=== PATIENT | male | born 1945 | race Caucasian/White ===

== ENCOUNTER 2017-05-23 01:50 | Emergency (ER) | payer MEDICARE ==
[~2017-05-23] VITALS: Ht 182.9 cm; Wt 83.9 kg
[~2017-05-23 01:50] MED LIST: ATEN25TA2 PO; ATIVAN; MOTRIN; OMEP40EC1 PO; PAX20 PO; TRAZ-286 PO
[2017-05-23 01:55] VITALS: BP 142/83
--- NOTE | 2017-05-23 02:04 | NUR ---
PT TAKEN TO BED 8
--- NOTE | 2017-05-23 02:13 | NUR ---
71Y/M PT. PRESENTS TO ED WITH C/O GENERALIZED WEAKNESS X 2 HRS. PT. STATES HEADACHE WITH GENERALIZED WEAKNESS, ALSO STATES CHECK BP AT HOME; HYPOTENSIVE 89/48. HX. HTN, ANXIETY, ATIVAN 2 MG TAKEN AT 2100. AAO X4, AMBULATORY WITH STEADY GAIT, CGS 15. RESPIRATIONS ROOM AIR, EVEN AND UNLABORED. C/O PAIN 5/10, VSS. ER MD MADE AWARE OF PT. STATUS.
--- NOTE | 2017-05-23 02:34 | NUR ---
Patient appears to be resting comfortably in bed. Vital Signs within normal limits. Respirations even and unlabored.
[2017-05-23 02:50] VITALS: BP 99/70
--- NOTE | 2017-05-23 02:50 | NUR ---
Patient discharged with v/s stable. Written and verbal after care instructions given and explained. Patient alert, oriented and verbalized understanding of instructions. Ambulatory with steady gait. All questions addressed prior to discharge. ID band removed. Patient advised to follow up with PMD IN 2-3 DAYS. Rx of LIDIAIEN given. Patient educated on indication of medication including possible reaction and side effects. Opportunity to ask questions provided and answered.
== END 2017-05-23 02:50 | disposition home or self-care (01) ==
LOC: MED 01:50
DX: G47.00 Insomnia, unspecified (principal); I10 Essential (primary) hypertension; K21.9 Gastro-esophageal reflux disease without esophagitis; Z88.2 Allergy status to sulfonamides; Z88.5 Allergy status to narcotic agent; Z79.899 Other long term (current) drug therapy
CPT/HCPCS: 99283

== ENCOUNTER 2017-09-03 19:16 | Emergency (ER) | payer MEDICARE ==
[~2017-09-03] VITALS: Ht 167.6 cm; Wt 90.8 kg
[2017-09-03 19:22] VITALS: BP 145/85
--- NOTE | 2017-09-03 19:47 | NUR ---
PATIENT AMBULATED TO ER OF2.
--- NOTE | 2017-09-03 19:50 | NUR ---
PATIENT PRESENTS TO ED WITH C/O COUGH/PHLEM AND BUCKLEY PT DENIES N/V/D; SKIN IS PINK/WARM/DRY; AAOX4 WITH EVEN AND STEADY GAIT; LUNGS CLEAR BL; HR EVEN AND REGULAR; PT DENIES ANY FEVER, CP, SOB AT THIS TIME; PATIENT STATES PAIN OF 7/10 AT THIS TIME; VSS; PATIENT POSITIONED FOR COMFORT; HOB ELEVATED; BEDRAILS UP X2; BED DOWN. ER MD MADE AWARE OF PT STATUS.
[2017-09-03 20:21] VITALS: BP 145/85
--- NOTE | 2017-09-03 20:21 | NUR ---
Patient discharged with v/s stable. Written and verbal after care instructions given and explained. Patient alert, oriented and verbalized understanding of instructions. Ambulatory with steady gait. All questions addressed prior to discharge. ID band removed. Patient advised to follow up with PMD. Rx of CLARITIN given. Patient educated on indication of medication including possible reaction and side effects. Opportunity to ask questions provided and answered.
== END 2017-09-03 20:21 | disposition home or self-care (01) ==
LOC: MED 19:16
DX: B34.9 Viral infection, unspecified (principal); J20.9 Acute bronchitis, unspecified; I10 Essential (primary) hypertension; K21.9 Gastro-esophageal reflux disease without esophagitis; F41.9 Anxiety disorder, unspecified; Z88.5 Allergy status to narcotic agent; Z88.2 Allergy status to sulfonamides; Z79.899 Other long term (current) drug therapy
CPT/HCPCS: 99282

== ENCOUNTER 2019-12-21 21:37 | Emergency (ER) | payer MEDICARE ==
[~2019-12-21] VITALS: Ht 182.9 cm; Wt 94.3 kg
[~2019-12-21 21:37] MED LIST changes: -OMEP40EC1 PO; +OMEP40EC24 PO; -TRAZ-286 PO; +TRAZ-343 PO
--- NOTE | 2019-12-21 21:37 | NUR ---
PT VINOD TELLEZ. TAKEN TO BED 11
--- NOTE | 2019-12-21 21:37 | NUR ---
Dr. Celestin examining patient.
[2019-12-21 21:42] VITALS: BP 199/100
--- NOTE | 2019-12-21 21:49 | NUR ---
SPOKE TO FAMILY OF PT. PER PT, STATED IT WAS OK TO GIVE INFORMATION ABOUT PT STATUS. PT DESIGNATED DAUGHTER NED THE PRIMARY CONTACT. [phone] SECONDARY NUMBER TONE MCCOY,
[2019-12-21] MEDS ORDERED: hydrALAZINE 20 MG/ML VIAL IVP ONE (21:55)
[2019-12-21] MEDS ORDERED: ENALAPRILAT 2.5 MG/2 ML VIAL IVP ONE (21:55)
--- NOTE | 2019-12-21 21:57 | NUR ---
DR NAIR AWARE OF PT BLOOD PRESSURE OF 197/108
--- NOTE | 2019-12-21 22:18 | NUR ---
74 Y/O MALE BIB [facility] C/O HIGH BLOOD PRESSURE. PT HAS HX OF HTN AND HAS NOT BEEN COMPLIANT WITH HTN MEDS (ATENOLOL 50MG). DENIES ANY CHEST PAIN. VSS. RESP EVEN AND UNLABORED. LUNG SOUNDS CLEAR IN ALL DE SOUZA. BOWEL SOUNDS NORMOACTIVE. AAOX4. CAP REFILL <3. PT IS AFEBRILE. DENIES COUGH/ N/V/D. PMH: HTN, ANXIETY
[2019-12-21 22:29] LABS: APPEARANCE,URINE CLEAR (CLEAR); BILIRUBIN,URINE NEGATIVE (NEGATIVE); BLOOD, URINE NEGATIVE (NEGATIVE); COLOR,URINE YELLOW (YELLOW); LEUKOCYTE ESTERASE ,URINE NEGATIVE (NEGATIVE); NITRITE, URINE NEGATIVE (NEGATIVE); PH,URINE 6.5 (5.0-9.0); UGLUCOSE NEGATIVE (NEGATIVE)
[2019-12-21 22:30] LABS: BASOPHILS # (AUTO) 0.1 K/uL (0.00-0.22); BASOPHILS % (AUTO) 0.9 % (0.0-2.0); EOSINOPHILS # (AUTO) 0.2 K/uL (0-0.4); HEMATOCRIT 46.2 % (36-52); HEMOGLOBIN 15.6 g/dL (12.0-18.0); LYMPHOCYTES # (AUTO) 2.5 K/uL (2.0-11.5); LYMPHOCYTES % (AUTO) 46.3 % (20.5-51.1); MEAN CORPUSCULAR HEMOGLOBIN 30 pg (27-31); MEAN CORPUSCULAR HGB CONC 34 g/dL (33-37); MEAN CORPUSCULAR VOLUME 90.2 fL (80-94); MONOCYTES # (AUTO) 0.6 K/uL (0.8-1.0); MONOCYTES % (AUTO) 11.6 % (1.7-9.3); NEUTROPHILS # (AUTO) 2.1 K/uL (1.8-7.7); NEUTROPHILS % (AUTO) 38.2 % (42.2-75.2); PLATELET COUNT (AUTO) 225 K/uL (140-450); RED BLOOD CELL COUNT(AUTO) 5.12 MIL/uL (4.20-6.10); RED CELL DISTRIBUTION WIDTH 13.6 % (11.6-13.7); WHITE BLOOD COUNT (AUTO) 5.4 K/uL (4.8-10.8)
[2019-12-21 22:45] LABS: ALBUMIN 4.2 g/dL (3.4-5.0); ANION GAP 11.8 (8-16); ASPARTATE AMINOTRANSFERASE 29 U/L (15-37); CARBON DIOXIDE 29.1 mmol/L (21-32); CHLORIDE 102 mmol/L (98-107); CREATININE 1.1 mg/dL (0.6-1.3); GLUCOSE 120 mg/dL (74-106); POTASSIUM 3.9 mmol/L (3.5-5.1); SODIUM SERUM 139 mmol/L (136-145); TOTAL BILIRUBIN 0.5 mg/dL (0.0-1.0); UREA NITROGEN, BLOOD 14 mg/dL (7-18)
[2019-12-22 01:04] VITALS: BP 119/72
--- NOTE | 2019-12-22 01:05 | NUR ---
Patient discharged BY DR. NAIR with v/s stable. Written and verbal after care instructions given and explained. Patient verbalized understanding. Ambulatory with steady gait. All questions addressed BY DR. NAIR prior to discharge. Advised to follow up with PMD.
== END 2019-12-22 01:05 | disposition home or self-care (01) ==
LOC: MED 21:37
DX: I10 Essential (primary) hypertension (principal); K21.9 Gastro-esophageal reflux disease without esophagitis; Z91.19 Patient's noncompliance with other medical treatment and regimen; Z79.899 Other long term (current) drug therapy; Z88.2 Allergy status to sulfonamides; Z88.5 Allergy status to narcotic agent
CPT/HCPCS: 36415; 80053; 81003; 84484; 85025; 93005; 96374; 96375; 99284; J0360; J3490

== ENCOUNTER 2019-12-26 19:00 | Emergency (ER) | payer MEDICARE ==
[~2019-12-26] VITALS: Ht 182.9 cm; Wt 94.3 kg
[2019-12-26 19:00] VITALS: BP 188/98
--- NOTE | 2019-12-26 19:02 | NUR ---
Pt with negative screening for covid-19. Pt triaged. Pt wearing mask
--- NOTE | 2019-12-26 19:02 | NUR ---
BIBA TAKEN TO BED 4
--- NOTE | 2019-12-26 19:10 | NUR ---
PT 74 Y/O MALE BIB SELF FOR C/O HTN X 1 DAY. PT STATED SBP WAS "IN THE 200'S" AT HOME. CURRENT BP:143/92. PT DENIES CHEST PAIN. PT DENIES BUCKLEY OR DIZZYNESS AT THIS TIME. 0/10 PAIN. PT STATES HE RECENTLY STARTED NEW BP MEDICATION- BENAZAPRIL 10MG. PT DENIES COUGH, AFEBRILE. RESPIRATIONS ARE EVEN AND UNLABORED. SKIN IS WARM AND DRY TO TOUCH. PT CURRENTLY ON MONITOR. MEDHX: HTN, INSOMNIA, ANXIETY, GERD. ALLERGIES: MORPHINE, SULFA
--- NOTE | 2019-12-26 19:12 | NUR ---
UA COLLECTED VIA URINAL. IV PLACED PRIOR TO ARRIVAL FROM EMS. IV IN L AC 20G. IV SITE IS PATENT. NO REDNESS OR SWELLING NOTED. NO C/O PAIN AT IV SITE.
--- NOTE | 2019-12-26 21:35 | NUR ---
PT RESTING IN POSITION OF COMFORT, BED LOW AND LOCKED, SIDERAILS UP, DIMMED THE LIGHTS AND PROVIDED PT A BLANKET.
--- NOTE | 2019-12-26 21:42 | NUR ---
LAB AT BEDSIDE
--- NOTE | 2019-12-26 21:52 | NUR ---
jessie emt at bedside performing ekg.
[2019-12-26 21:58] LABS: BASOPHILS % (AUTO) 0.7 % (0.0-2.0); EOSINOPHILS # (AUTO) 0.1 K/uL (0-0.4); EOSINOPHILS % (AUTO) 2.9 % (0.0-4.0); HEMATOCRIT 43.9 % (36-52); HEMOGLOBIN 14.8 g/dL (12.0-18.0); LYMPHOCYTES # (AUTO) 1.7 K/uL (2.0-11.5); LYMPHOCYTES % (AUTO) 37.9 % (20.5-51.1); MEAN CORPUSCULAR HEMOGLOBIN 31 pg (27-31); MEAN CORPUSCULAR HGB CONC 34 g/dL (33-37); MEAN CORPUSCULAR VOLUME 91.1 fL (80-94); MONOCYTES # (AUTO) 0.6 K/uL (0.8-1.0); MONOCYTES % (AUTO) 12.4 % (1.7-9.3); NEUTROPHILS # (AUTO) 2.1 K/uL (1.8-7.7); NEUTROPHILS % (AUTO) 46.1 % (42.2-75.2); PLATELET COUNT (AUTO) 190 K/uL (140-450); RED BLOOD CELL COUNT(AUTO) 4.82 MIL/uL (4.20-6.10); RED CELL DISTRIBUTION WIDTH 13.8 % (11.6-13.7); WHITE BLOOD COUNT (AUTO) 4.6 K/uL (4.8-10.8)
[2019-12-26 22:20] LABS: ALBUMIN 3.7 g/dL (3.4-5.0); ANION GAP 10.3 (8-16); ASPARTATE AMINOTRANSFERASE 26 U/L (15-37); CHLORIDE 105 mmol/L (98-107); CREATININE 0.9 mg/dL (0.6-1.3); GLUCOSE 117 mg/dL (74-106); POTASSIUM 4.3 mmol/L (3.5-5.1); SODIUM SERUM 141 mmol/L (136-145); TOTAL BILIRUBIN 0.4 mg/dL (0.0-1.0); UREA NITROGEN, BLOOD 15 mg/dL (7-18)
[2019-12-26 22:58] VITALS: BP 167/84
--- NOTE | 2019-12-26 22:58 | NUR ---
Patient discharged with v/s stable. Written and verbal after care instructions given and explained. Patient verbalized understanding. Ambulatory with steady gait. All questions addressed prior to discharge. Advised to follow up with PMD.
--- NOTE | 2019-12-26 22:58 | NUR ---
elijah ritchie aware of pt bp prior to d/c.
== END 2019-12-26 22:58 | disposition home or self-care (01) ==
LOC: MED 19:00
DX: I10 Essential (primary) hypertension (principal); F41.0 Panic disorder [episodic paroxysmal anxiety]; K21.9 Gastro-esophageal reflux disease without esophagitis; G47.00 Insomnia, unspecified; Z79.899 Other long term (current) drug therapy; Z88.5 Allergy status to narcotic agent; Z88.2 Allergy status to sulfonamides
CPT/HCPCS: 36415; 80053; 84484; 85025; 93005; 99284

== ENCOUNTER 2020-01-03 03:26 | Emergency (ER) | payer MEDICARE ==
[~2020-01-03] VITALS: Ht 182.9 cm; Wt 86.2 kg
--- NOTE | 2020-01-03 03:26 | NUR ---
PT VINOD BLS TO ER BED 07
[2020-01-03 03:29] VITALS: BP 202/104
[2020-01-03] MEDS ORDERED: hydrALAZINE 20 MG/ML VIAL IVP ONE (03:35)
--- NOTE | 2020-01-03 03:40 | NUR ---
74 YEAR OLD MALE BIBA COMPLAINS OF ANXIETY AND DIZZINESS X 1 HOUR. PATIENT STATES THAT WHEN HE WAS HOME HE TOOK HIS BLOOD PRESSURE AND IT READ "HIGH." PER EMS PATIETN BP WAS 230/110. PATIENT AOX4, BREATHING EVEN AND UNLABORED, SKIN WARM AND DRY. BED IN LOWEST POSITION, LOCKED, BED RAIL UPX1. PATIENT DENIES HEADACHE, CHEST PAIN, AND SHORTNESS OF BREATHE. PATIENT PLACED ON MONITOR, ERMD MADE AWARE. PMH - ANXIETY, HTN ALLERGIES - MORPHINE, SULFA
[2020-01-03] MEDS ORDERED: ONDANSETRON 4 MG/2 ML VIAL IVP ONE (04:10)
[2020-01-03] MEDS ORDERED: LORazepam 2 MG/ML VIAL IVP ONE ×2 (04:10→04:25)
[2020-01-03 04:12] LABS: BASOPHILS % (AUTO) 0.5 % (0.0-2.0); EOSINOPHILS # (AUTO) 0.2 K/uL (0-0.4); EOSINOPHILS % (AUTO) 4.2 % (0.0-4.0); LYMPHOCYTES # (AUTO) 1.3 K/uL (2.0-11.5); LYMPHOCYTES % (AUTO) 35.2 % (20.5-51.1); MEAN CORPUSCULAR HEMOGLOBIN 30 pg (27-31); MEAN CORPUSCULAR HGB CONC 34 g/dL (33-37); MEAN CORPUSCULAR VOLUME 89.5 fL (80-94); MONOCYTES # (AUTO) 0.4 K/uL (0.8-1.0); MONOCYTES % (AUTO) 10.8 % (1.7-9.3); NEUTROPHILS # (AUTO) 1.8 K/uL (1.8-7.7); NEUTROPHILS % (AUTO) 49.3 % (42.2-75.2); PLATELET COUNT (AUTO) 189 K/uL (140-450); RED BLOOD CELL COUNT(AUTO) 4.92 MIL/uL (4.20-6.10); RED CELL DISTRIBUTION WIDTH 13.9 % (11.6-13.7); WHITE BLOOD COUNT (AUTO) 3.6 K/uL (4.8-10.8)
[2020-01-03 04:44] LABS: ALBUMIN 3.7 g/dL (3.4-5.0); ANION GAP 13.6 (8-16); ASPARTATE AMINOTRANSFERASE 27 U/L (15-37); CHLORIDE 104 mmol/L (98-107); GLUCOSE 124 mg/dL (74-106); POTASSIUM 3.6 mmol/L (3.5-5.1); SODIUM SERUM 141 mmol/L (136-145); TOTAL BILIRUBIN 0.5 mg/dL (0.0-1.0)
[2020-01-03 05:04] LABS: UREA NITROGEN, BLOOD 13 mg/dL (7-18)
[2020-01-03 06:19] VITALS: BP 104/57
--- NOTE | 2020-01-03 06:40 | NUR ---
PATIENT STATES HE STILL HAS DIZZINESS, UNABLE TO WALK. ERMD MADE AWARE
[2020-01-03] MEDS ORDERED: MECLIZINE 25 MG TAB PO ONE (06:45)
--- NOTE | 2020-01-03 07:15 | NUR ---
RECEIVED REPORT FROM NICKOLAS HUITRON.
--- NOTE | 2020-01-03 07:15 | NUR ---
REPORT GIVEN TO LJ OLMOS, TRANSFER OF CARE AT THIS TIME
--- NOTE | 2020-01-03 07:18 | NUR ---
WHEELED PT TO RESTROOM TO DO NUMBER 2.
--- NOTE | 2020-01-03 07:25 | NUR ---
pt back from restroom .
--- NOTE | 2020-01-03 07:30 | NUR ---
dr zurita at bedside reevaluating pt and was advise to take homes meds and ff up with his primary doctor . vs stable , ambulatory with steady gait.
== END 2020-01-03 07:48 | disposition home or self-care (01) ==
LOC: MED 03:26
DX: I10 Essential (primary) hypertension (principal); R42 Dizziness and giddiness; F41.9 Anxiety disorder, unspecified; K21.9 Gastro-esophageal reflux disease without esophagitis; Z88.1 Allergy status to other antibiotic agents; Z88.5 Allergy status to narcotic agent; Z79.899 Other long term (current) drug therapy
CPT/HCPCS: 36415; 71045; 80053; 83690; 84484; 85025; 93005; 96374; 96375; 99285; J0360; J2060; J2405; J8597; Q0092; 99283

== ENCOUNTER 2020-01-15 22:59 | Emergency (ER) | payer MEDICARE ==
[~2020-01-15] VITALS: Ht 182.9 cm; Wt 81.6 kg
[2020-01-15 23:04] VITALS: BP 215/118
[2020-01-15] MEDS ORDERED: cloNIDine 0.1 MG TAB PO ONE (23:15)
[2020-01-15] MEDS ORDERED: hydrALAZINE 25 MG TAB PO SCH (23:15)
[2020-01-15 23:26] LABS: BASOPHILS # (AUTO) 0.1 K/uL (0.00-0.22); EOSINOPHILS # (AUTO) 0.1 K/uL (0-0.4); HEMATOCRIT 46.8 % (36-52); HEMOGLOBIN 15.6 g/dL (12.0-18.0); LYMPHOCYTES # (AUTO) 2.5 K/uL (2.0-11.5); LYMPHOCYTES % (AUTO) 44.3 % (20.5-51.1); MEAN CORPUSCULAR HEMOGLOBIN 30 pg (27-31); MEAN CORPUSCULAR HGB CONC 33 g/dL (33-37); MEAN CORPUSCULAR VOLUME 90.7 fL (80-94); MONOCYTES # (AUTO) 0.6 K/uL (0.8-1.0); MONOCYTES % (AUTO) 10.1 % (1.7-9.3); NEUTROPHILS # (AUTO) 2.4 K/uL (1.8-7.7); NEUTROPHILS % (AUTO) 42.6 % (42.2-75.2); PLATELET COUNT (AUTO) 226 K/uL (140-450); RED BLOOD CELL COUNT(AUTO) 5.16 MIL/uL (4.20-6.10); RED CELL DISTRIBUTION WIDTH 14.4 % (11.6-13.7); WHITE BLOOD COUNT (AUTO) 5.7 K/uL (4.8-10.8)
--- NOTE | 2020-01-15 23:35 | NUR ---
Jazmín escudero in ED - 01/16/20 at 0008 by [facility] BP OF 215/118. DR CHAVIRA MADE AWARE.
--- NOTE | 2020-01-15 23:35 | NUR ---
BP OF 215/118. DR CHAVIRA MADE AWARE.
--- NOTE | 2020-01-15 23:40 | NUR ---
74M BIBA C/O HIGH BP AT 215/118. PT HAS NOT BEEN RESPONDING TO HTN MEDICATION PER PT. PT STATES IS COMPLIANT WITH HTN MEDICATION BUT THE DOSE IS NOT MAINTAINING BP WNL. PT HAS HEADACHE WITH PAIN 01/24. PT REPORTS TAKING EXTRA BP MEDICATIONS X AM. HEART RATE AT 50BPM, DOCTOR CHAVIRA NOTIFIED. MEDICAL HX: HTN/ANXIETY/GI REFLUX ALLERGY: SULFA
--- NOTE | 2020-01-15 23:42 | NUR ---
PT MEDICATED WITH CLONIDINE AND HYDRALAZINE FOR HIGH BP. TOLERATED PROCEDURE WELL.
[2020-01-15 23:43] LABS: ALBUMIN 4.2 g/dL (3.4-5.0); ANION GAP 10.9 (8-16); ASPARTATE AMINOTRANSFERASE 22 U/L (15-37); CARBON DIOXIDE 30.9 mmol/L (21-32); CHLORIDE 102 mmol/L (98-107); GLUCOSE 118 mg/dL (74-106); POTASSIUM 3.8 mmol/L (3.5-5.1); SODIUM SERUM 140 mmol/L (136-145); TOTAL BILIRUBIN 0.5 mg/dL (0.0-1.0); UREA NITROGEN, BLOOD 12 mg/dL (7-18)
--- NOTE | 2020-01-16 00:15 | NUR ---
BP NOW AT 184/69. DR. CHAVIRA NOTIFIED.
--- NOTE | 2020-01-16 00:16 | NUR ---
DR CHAVIRA AT BEDSIDE EVALUATING PT.
--- NOTE | 2020-01-16 00:16 | NUR ---
Jazmín escudreo in [facility] - 01/16/20 at 0016 by TARAN AT BEDSIDE TALKING WITH PT
[2020-01-16] MEDS ORDERED: cloNIDine 0.1 MG TAB PO ONE (00:25)
--- NOTE | 2020-01-16 00:32 | NUR ---
BP 144/95. DR CHAVIRA MADE AWARE. CLONIDINE MEDICATION ON HOLD.
[2020-01-16] MEDS ORDERED: hydrALAZINE 25 MG TAB PO SCH (00:50)
--- NOTE | 2020-01-16 01:04 | NUR ---
BP 135/74, HR [address] CHAVIRA MADE AWARE[address] HOLD APRESOLINE PER MD ORDER.
[2020-01-16 01:32] VITALS: BP 127/76
--- NOTE | 2020-01-16 01:32 | NUR ---
Patient discharged with v/s stable. Written and verbal after care instructions given and explained. Patient alert, oriented and verbalized understanding of instructions. Ambulatory with steady gait. All questions addressed prior to discharge. ID band removed. Patient advised to follow up with PMD. Rx of HYDRALAZINE given. Patient educated on indication of medication including possible reaction and side effects. Opportunity to ask questions provided and answered.
== END 2020-01-16 01:31 | disposition home or self-care (01) ==
LOC: MED 22:59
DX: I10 Essential (primary) hypertension (principal); R42 Dizziness and giddiness; K21.9 Gastro-esophageal reflux disease without esophagitis; Z79.899 Other long term (current) drug therapy; Z88.5 Allergy status to narcotic agent; Z88.2 Allergy status to sulfonamides
CPT/HCPCS: 36415; 80053; 85025; 99283

== ENCOUNTER 2020-01-16 16:43 | Emergency (ER) | payer MEDICARE ==
[~2020-01-16] VITALS: Ht 182.9 cm; Wt 81.6 kg
[2020-01-16 17:25] VITALS: BP 197/105
--- NOTE | 2020-01-16 17:37 | NUR ---
WAIT AT LOBBY
--- NOTE | 2020-01-16 18:01 | NUR ---
PT AMB TO BED 11.
--- NOTE | 2020-01-16 18:13 | NUR ---
74 y/m presents to ed C/O HEADACHE , NECK PAIN X TODAY. PT REPORTS 6/10 PAIN. PT WAS SEEN HERE YESTERDAY FOR HTN AND WAS PRESCRIBED HYDROCHLOROTHIAZIDE IN ADDITION TO HIS OTHER HTN RX. ,PT REPORTS HE LAST TOOK HYDROCHLORATHIAZIDE AT 1600. PT REPORTS HIGHEST BP WAS 186/87. PT DENIES NAUSEA, SOB, OR CHEST PAIN . PT A &O X 4. PERRL. RR EVEN AND UNLABORED. PT REPORTS HE FELT A LITTLE ANXIOUS EARLIER BUT HAS SUBSIDED. LUNGS CLEAR, ABD SOFT. BS ACTIVE X 4. MED HX: HTN, ANXIETY, GERD MED : HYDRALAZINE , BENAZEPRIL, ATENOLOL
[2020-01-16] MEDS ORDERED: cloNIDine 0.1 MG TAB PO ONE (18:15)
--- NOTE | 2020-01-16 18:32 | NUR ---
DAUGHTER NICK BAUER INQUIRING ABOUT PTS STATUS, NOTIFIED HER WE WILL DRAW LABS AND UPDATE HER IN ABOUT ONE HOUR.
--- NOTE | 2020-01-16 18:48 | NUR ---
DR SANDOVAL STATES HOLD BP MEDICATION
--- NOTE | 2020-01-16 18:50 | NUR ---
NEW BP 144/98
--- NOTE | 2020-01-16 19:12 | NUR ---
REPORT GIVEN TO YAEL OLMOS, TRASNFER OF [facility]
--- NOTE | 2020-01-16 20:30 | NUR ---
DR. CRAFT AT BEDSIDE.
[2020-01-16 20:44] VITALS: BP 107/79
[2020-01-16 21:49] LABS: ANION GAP 10.3 (8-16); CARBON DIOXIDE 30.9 mmol/L (21-32); CHLORIDE 101 mmol/L (98-107); GLUCOSE 122 mg/dL (74-106); POTASSIUM 4.2 mmol/L (3.5-5.1); SODIUM SERUM 138 mmol/L (136-145); UREA NITROGEN, BLOOD 11 mg/dL (7-18)
== END 2020-01-16 20:44 | disposition home or self-care (01) ==
LOC: MED 16:43
DX: I10 Essential (primary) hypertension (principal); K21.9 Gastro-esophageal reflux disease without esophagitis; Z88.5 Allergy status to narcotic agent; Z88.0 Allergy status to penicillin; Z79.899 Other long term (current) drug therapy
CPT/HCPCS: 36415; 80048; 84484; 93005; 99284

== ENCOUNTER 2020-01-27 12:42 | Emergency (ER) | payer MEDICARE ==
[~2020-01-27] VITALS: Ht 175.3 cm; Wt 90.7 kg
[2020-01-27 12:43] VITALS: BP 161/89
--- NOTE | 2020-01-27 12:44 | NUR ---
PT BIBA TO ER BED 7
--- NOTE | 2020-01-27 12:56 | NUR ---
74 YO MALE BIBA CO ANXIETY SINCE TODAY. PT STATED THAT HE TOOK HIS BP AND IT WAS HIGH WHICH CAUSED A PANIC ATTACK. PT HAS A HX OF HTN AND ANXIETY. BP SLIGHTLY ELEVATED.
--- NOTE | 2020-01-27 12:57 | NUR ---
ERMD BEDSIDE EVALUATING PT
[2020-01-27 13:20] VITALS: BP 153/78
== END 2020-01-27 13:21 | disposition home or self-care (01) ==
LOC: MED 12:42
DX: I10 Essential (primary) hypertension (principal); F41.9 Anxiety disorder, unspecified; K21.9 Gastro-esophageal reflux disease without esophagitis
CPT/HCPCS: 99283

== ENCOUNTER 2020-04-03 20:24 | Emergency (ER) | payer MEDICARE ==
[~2020-04-03] VITALS: Ht 182.9 cm; Wt 81.6 kg
[2020-04-03 20:30] VITALS: BP 192/101
--- NOTE | 2020-04-03 20:40 | NUR ---
HIGH BLOOD PRESSURE READING AT HOME 250S SYSTOLIC, PT REPORTS HEADACHE SUDDEN ONSET 2 HRS AGO. CURRENT BP 190/102. +BUCKLEY. DENIES ANY N,V,D, OR BLURRY VISION. NEG BEFAST SCREEN. BP 192/101. PT DENIES ANY CHEST PAIN, +2 RADIAL PLUSE PRESENT ON BUE. SKIN IS WARM TO TOUCH, CAP REFILL < 3. A&O X4. LUNG SOUNDS CLEAR ALL THROUGHOUT. PT SAYS HE HAD SOB PRIOR TO ARRIVAL. NO DISTRESS NOTED AT THIS TIME. SPO2 95% RA. PMHX--HTN AND ANXIETY ALLERGIES: SULFA, MORPHINE.
--- NOTE | 2020-04-03 21:00 | NUR ---
EKG PERFORMED AT BEDSIDE
--- NOTE | 2020-04-03 21:12 | NUR ---
Jazmín escudero in [facility] - 04/03/20 at 2113 by [facility] URINE COLLECTED AND SENT TO LAB.
--- NOTE | 2020-04-03 22:11 | NUR ---
IV removed, catheter intact and site benign. Applied folded 4x4 gauze and tape to stop bleeding.
[2020-04-03 22:14] VITALS: BP 126/67
== END 2020-04-03 22:14 | disposition home or self-care (01) ==
LOC: MED 20:24
DX: I10 Essential (primary) hypertension (principal); K21.9 Gastro-esophageal reflux disease without esophagitis; F41.9 Anxiety disorder, unspecified; Z79.899 Other long term (current) drug therapy; Z88.5 Allergy status to narcotic agent
CPT/HCPCS: 81002; 93005; 99283

== ENCOUNTER 2020-04-11 17:25 | Emergency (ER) | payer MEDICARE ==
[~2020-04-11] VITALS: Ht 182.9 cm; Wt 83.9 kg
[2020-04-11 17:31] VITALS: BP 208/99
--- NOTE | 2020-04-11 17:46 | NUR ---
DR RAMAN EVALUATING PT AT BEDSIDE
--- NOTE | 2020-04-11 17:58 | NUR ---
74 Y/O MALE PRESENTS WITH HEADACHE SECONDARY TO HIGH BLOOD PRESSURE X1 DAY. PT STATES HE HAS BEEN TAKING BENAZIPRIL FOR HTN, ATIVAN AND CELEXA FOR ANXIETY. PT STATES HE HAS BEEN BACK AND FOURTH WITH HIS PCP REGARDING GETTING HTN UNDER CONTROL. PT STATES HEADACHE IS 8/10, DULL AND THROBBING. AAOX4. VSS. PMH: HTN, ANXIETY
--- NOTE | 2020-04-11 18:14 | NUR ---
PT BEING TAKEN TO CT VIA WHEELCHAIR
--- NOTE | 2020-04-11 18:21 | NUR ---
PT BACK FROM CT, RESTING IN BED
[2020-04-11 18:33] LABS: ANION GAP 13.8 (8-16); CARBON DIOXIDE 27.3 mmol/L (21-32); CHLORIDE 103 mmol/L (98-107); GLUCOSE 114 mg/dL (74-106); POTASSIUM 4.1 mmol/L (3.5-5.1); SODIUM SERUM 140 mmol/L (136-145); UREA NITROGEN, BLOOD 11 mg/dL (7-18)
--- NOTE | 2020-04-11 19:18 | NUR ---
RECIEVED REPORT FROM NICKOLAS EMMANUEL. TRANSFER OF CARE AT THIS TIME.
[2020-04-11 19:24] VITALS: BP 129/83
== END 2020-04-11 19:24 | disposition home or self-care (01) ==
LOC: MED 17:25
DX: I10 Essential (primary) hypertension (principal); K21.9 Gastro-esophageal reflux disease without esophagitis; Z88.6 Allergy status to analgesic agent; Z79.899 Other long term (current) drug therapy
CPT/HCPCS: 29515; 36415; 70450; 80048; 93005; 99285

== ENCOUNTER 2020-04-11 22:45 | Emergency (ER) | payer MEDICARE ==
[~2020-04-11] VITALS: Ht 182.9 cm; Wt 92.5 kg
[2020-04-11 23:01] VITALS: BP 218/116
[2020-04-11] MEDS ORDERED: CLONIDINE HYDROCHLORIDE 0.1 MG TAB PO ONE (23:25)
[2020-04-12 00:40] VITALS: BP 189/93
== END 2020-04-12 00:40 | disposition home or self-care (01) ==
LOC: MED 22:45
DX: I16.0 Hypertensive urgency (principal); F41.9 Anxiety disorder, unspecified; K21.9 Gastro-esophageal reflux disease without esophagitis; Z88.6 Allergy status to analgesic agent; Z79.899 Other long term (current) drug therapy
CPT/HCPCS: 99283

== ENCOUNTER 2020-06-02 18:03 | Emergency (ER) | payer MEDICARE ==
[~2020-06-02] VITALS: Ht 182.9 cm; Wt 86.2 kg
[2020-06-02 18:16] VITALS: BP 202/103
--- NOTE | 2020-06-02 18:30 | NUR ---
74 YO MALE CO HIGH BLOOD PRESSURE READING AT HOME TODAY. DENIES CP/SOB. MILD DIZZINESS AND MILD GENERALIZED WEAKNESS. NO VISION CHANGES. FEELS "SHAKY". HEADACHE 04/26. HX- HTN, ANXIETY
--- NOTE | 2020-06-02 19:30 | NUR ---
REPORT RECEIVED FROM SALVATORE OLMOS
[2020-06-02] MEDS ORDERED: hydrALAZINE 20 MG/ML VIAL IVP ONE (19:55)
[2020-06-02 20:50] VITALS: BP 149/79
== END 2020-06-02 20:40 | disposition home or self-care (01) ==
LOC: MED 18:03
DX: I16.0 Hypertensive urgency (principal); K21.9 Gastro-esophageal reflux disease without esophagitis; I51.89 Other ill-defined heart diseases; Z88.6 Allergy status to analgesic agent; Z79.899 Other long term (current) drug therapy
CPT/HCPCS: 96374; 99284; J0360

== ENCOUNTER 2020-06-13 15:16 | Emergency (ER) | payer MEDICARE ==
[~2020-06-13] VITALS: Ht 180.3 cm; Wt 93.0 kg
[2020-06-13 15:20] VITALS: BP 219/100
[2020-06-13] MEDS ORDERED: hydrALAZINE 25 MG TAB PO SCH (15:40)
--- NOTE | 2020-06-13 15:41 | NUR ---
74 Y/O MALE C/O HIGH BLOOD PRESSURE TODAY, 210/100. PATIENT STATES HE HAS TAKEN HIS BENAZEPRIL, ATENOLOL AND LORAZEPAM TODAY. PATIENT STATES HE FEELS ANXIOUS. DENIES ANY VISION CHANGES, DIZZINESS, WEAKNESS OR PAIN. AAOX4. AMBULATORY WITH STEADY GAIT. PMH: HTN, ANXIETY
[2020-06-13 16:22] LABS: ANION GAP 11.7 (8-16); CARBON DIOXIDE 30.8 mmol/L (21-32); CHLORIDE 106 mmol/L (98-107); GLUCOSE 115 mg/dL (74-106); POTASSIUM 4.5 mmol/L (3.5-5.1); SODIUM SERUM 144 mmol/L (136-145); UREA NITROGEN, BLOOD 10 mg/dL (7-18)
--- NOTE | 2020-06-13 16:55 | NUR ---
Dr Rushing at bedside re-evaluating pt
[2020-06-13 16:59] VITALS: BP 138/75
== END 2020-06-13 17:01 | disposition home or self-care (01) ==
LOC: MED 15:16
DX: I10 Essential (primary) hypertension (principal); F41.9 Anxiety disorder, unspecified; K21.9 Gastro-esophageal reflux disease without esophagitis; Z79.899 Other long term (current) drug therapy; Z88.2 Allergy status to sulfonamides; Z88.5 Allergy status to narcotic agent
CPT/HCPCS: 36415; 80048; 84484; 93005; 99283; 99284

== ENCOUNTER 2020-06-14 15:30 | Emergency (ER) | payer MEDICARE ==
[~2020-06-14] VITALS: Ht 182.9 cm; Wt 92.5 kg
[2020-06-14 15:42] VITALS: BP 172/90
--- NOTE | 2020-06-14 16:19 | NUR ---
PT AMB TO BED 4.
--- NOTE | 2020-06-14 16:19 | NUR ---
74/M BIB SELF C/O DIARRHEA X YESTERDAY AND C/O HEADACHE, HIGH BP 205/100 X TODAY. BP 172/90 AT THIS TIME. SEEN HERE YESTERDAY SAME S/S.MED HX: HTN, ANXIETY. SKIN IS PINK/WARM/DRY; AAOX4 WITH EVEN AND STEADY GAIT; LUNGS CLEAR BL; HR EVEN AND REGULAR; PT DENIES ANY FEVER, CP, SOB, OR COUGH AT THIS TIME; PATIENT STATES PAIN OF 8/10 AT THIS TIME. PATIENT POSITIONED FOR COMFORT; HOB ELEVATED; BEDRAILS UP X1; BED DOWN. ER MD MADE AWARE OF PT STATUS.
[2020-06-14 16:22] LABS: BASOPHILS % (AUTO) 0.7 % (0.0-2.0); EOSINOPHILS # (AUTO) 0.1 K/uL (0-0.4); EOSINOPHILS % (AUTO) 2.1 % (0.0-4.0); HEMATOCRIT 46.4 % (36-52); HEMOGLOBIN 15.5 g/dL (12.0-18.0); LYMPHOCYTES % (AUTO) 36.1 % (20.5-51.1); MEAN CORPUSCULAR HEMOGLOBIN 30 pg (27-31); MEAN CORPUSCULAR HGB CONC 33 g/dL (33-37); MEAN CORPUSCULAR VOLUME 90.9 fL (80-94); MONOCYTES # (AUTO) 0.6 K/uL (0.8-1.0); MONOCYTES % (AUTO) 10.5 % (1.7-9.3); NEUTROPHILS # (AUTO) 2.8 K/uL (1.8-7.7); NEUTROPHILS % (AUTO) 50.6 % (42.2-75.2); PLATELET COUNT (AUTO) 224 K/uL (140-450); RED CELL DISTRIBUTION WIDTH 14.3 % (11.6-13.7); WHITE BLOOD COUNT (AUTO) 5.5 K/uL (4.8-10.8)
--- NOTE | 2020-06-14 16:30 | NUR ---
Patient being evaluated by DR VASQUES at bedside.
--- NOTE | 2020-06-14 16:37 | NUR ---
Pharmacy called for Hydralazine, will bring to ED.
[2020-06-14 16:53] LABS: ALBUMIN 4.2 g/dL (3.4-5.0); ASPARTATE AMINOTRANSFERASE 22 U/L (15-37); CARBON DIOXIDE 30.1 mmol/L (21-32); CHLORIDE 104 mmol/L (98-107); CREATININE 0.9 mg/dL (0.6-1.3); GLUCOSE 114 mg/dL (74-106); POTASSIUM 4.1 mmol/L (3.5-5.1); SODIUM SERUM 138 mmol/L (136-145); TOTAL BILIRUBIN 0.5 mg/dL (0.0-1.0); UREA NITROGEN, BLOOD 9 mg/dL (7-18)
[2020-06-14] MEDS: hydrALAZINE 25 MG TAB PO SCH (16:54)
--- NOTE | 2020-06-14 17:00 | NUR ---
Pt BP decreased after receiving medication
[2020-06-14 17:23] VITALS: BP 158/84
--- NOTE | 2020-06-14 17:24 | NUR ---
Patient discharged with v/s stable. Written and verbal after care instructions given and explained. Patient alert, oriented and verbalized understanding of instructions. Ambulatory with steady gait. All questions addressed prior to discharge. ID band removed. Patient advised to follow up with PMD. Rx of Hydralazine Hydrochloride 25mg given. Patient educated on indication of medication including possible reaction and side effects. Opportunity to ask questions provided and answered.
== END 2020-06-14 17:24 | disposition home or self-care (01) ==
LOC: MED 15:30
DX: I10 Essential (primary) hypertension (principal); R51 Headache; I11.0 Hypertensive heart disease with heart failure; K21.9 Gastro-esophageal reflux disease without esophagitis; F41.9 Anxiety disorder, unspecified; Z79.899 Other long term (current) drug therapy; Z88.2 Allergy status to sulfonamides; Z88.5 Allergy status to narcotic agent
CPT/HCPCS: 36415; 70450; 80053; 85025; 99285

== ENCOUNTER 2020-06-15 18:29 | Emergency (ER) | payer MEDICARE ==
[~2020-06-15] VITALS: Ht 182.9 cm; Wt 88.5 kg
[2020-06-15 18:33] VITALS: BP 185/96
--- NOTE | 2020-06-15 18:46 | NUR ---
PRESENTS TO ER WITH PERSISTENT HYPERTENSIONS, PATIENT STATES HE HAS BEEN COMING TO THE ER FOR THE PAST WEEK EVERYDAY FOR HIGH BLOOD PRESSURE. DENIES HEADACHE/ VISION CHANGES. PT AOX4 , AFIBRILE , AMBULATORY WITH STEADY GAIT , SCE , FLAT SOFT ABDOMEN. PMH: HTN, ANXIETY ALLERGIES: SULFA, MORPHINE
--- NOTE | 2020-06-15 19:06 | NUR ---
GAVE REPORT TO NICKOLAS NEVAREZ PT COMFORTABLE IN BED WITH STABLE VSS , SIDE RAIL UP X1 AND LOCK AT LOWEST POSITION AND LOCK.
--- NOTE | 2020-06-15 19:11 | NUR ---
REPORT RECEIVED FROM MATIAS OLMOS
--- NOTE | 2020-06-15 19:17 | NUR ---
Dr. Cruz examining patient.
[2020-06-15] MEDS ORDERED: FAMOTIDINE 20 MG TAB PO ONE (19:25)
[2020-06-15 19:49] VITALS: BP 184/86
== END 2020-06-15 19:50 | disposition home or self-care (01) ==
LOC: MED 18:29
DX: I10 Essential (primary) hypertension (principal); K21.9 Gastro-esophageal reflux disease without esophagitis; F41.9 Anxiety disorder, unspecified; I51.89 Other ill-defined heart diseases; Z88.2 Allergy status to sulfonamides; Z88.6 Allergy status to analgesic agent; Z79.899 Other long term (current) drug therapy
CPT/HCPCS: 99282; 99283

== ENCOUNTER 2020-06-20 19:13 | Emergency (ER) | payer MEDICARE ==
[~2020-06-20] VITALS: Ht 182.9 cm; Wt 86.2 kg
[2020-06-20 19:26] VITALS: BP 167/86
[2020-06-20 20:13] VITALS: BP 122/66
== END 2020-06-20 20:13 | disposition home or self-care (01) ==
LOC: MED 19:13
DX: I11.0 Hypertensive heart disease with heart failure (principal); K21.9 Gastro-esophageal reflux disease without esophagitis; Z88.2 Allergy status to sulfonamides; Z88.5 Allergy status to narcotic agent; Z79.899 Other long term (current) drug therapy
CPT/HCPCS: 99283

== ENCOUNTER 2020-07-15 21:23 | Emergency (ER) | payer MEDICARE ==
[~2020-07-15] VITALS: Ht 182.9 cm; Wt 79.4 kg
[2020-07-15 21:26] VITALS: BP 178/97
[2020-07-15 22:50] VITALS: BP 142/79
== END 2020-07-15 21:50 | disposition home or self-care (01) ==
LOC: MED 21:23
DX: I10 Essential (primary) hypertension (principal); I51.89 Other ill-defined heart diseases; K21.9 Gastro-esophageal reflux disease without esophagitis; Z88.2 Allergy status to sulfonamides; Z88.6 Allergy status to analgesic agent; Z79.899 Other long term (current) drug therapy
CPT/HCPCS: 99281; 99283

== ENCOUNTER 2020-10-28 19:57 | Emergency (ER) | payer MEDICARE ==
[~2020-10-28] VITALS: Ht 182.9 cm; Wt 86.2 kg
[2020-10-28 20:11] VITALS: BP 160/82
--- NOTE | 2020-10-28 20:11 | NUR ---
TO LOBBY A/W BED AMBULATORY
--- NOTE | 2020-10-28 21:49 | NUR ---
PATIENT LEFT WITHOUT BEING SEEN BY DR. CALLAWAY. NO FURTHER CARE PROVIDED FOR PATIENT.
== END 2020-10-28 21:49 | disposition left against medical advice (07) ==
LOC: MED 19:57
DX: I10 Essential (primary) hypertension (principal); Z53.21 Procedure and treatment not carried out due to patient leaving prior to being seen by health care provider

== ENCOUNTER 2021-01-28 20:32 | Emergency (ER) | payer BC, MEDICARE ==
[~2021-01-28] VITALS: Ht 182.9 cm; Wt 89.8 kg
[2021-01-28 20:36] VITALS: BP 197/107
--- NOTE | 2021-01-28 20:50 | NUR ---
PT IS A 75 Y.O. MALE BIB SELF W/ CC HIGH BLOOD PRESSURE. PT STATED HE TOOK HIS BP AT HOME AT IT WAS 203/103. PT TOOK BP MEDICATION THAT WAS PRESCRIBED TO HIM; ATENOLOL, HYDRALYZINE, AND CLONIDINE. PT ALSO TOOK LORAZEPAM PRESCRIBED TO HIM FOR ANXIETY. PT ALSO STATES HE FELT LIKE HE WAS HAVING A PANIC ATTACK AND HAS BEEN VERY STRESSED OUT LATELY BECAUSE HIS GRANDDAUGHTER RAN AWAY FROM HOME. PT DENIES CHEST PAIN. PT DENIES HEADACHE. NO RESPIRATORY DISTRESS NOTED. PMH: ANXIETY, HTN, ACID REFLUX. ALLERGIES TO SULFA AND MORPHINE.
--- NOTE | 2021-01-28 21:05 | NUR ---
ERMD AT BEDSIDE EVALUATING PT.
--- NOTE | 2021-01-28 21:28 | NUR ---
RECHECKED BP AND IT WAS 127/87. HR 58. PT IS STABLE. WILL PROVIDE D/C INSTRUCTIONS SHORTLY.
[2021-01-28 21:31] VITALS: BP 127/87
--- NOTE | 2021-01-28 21:31 | NUR ---
Patient discharged with v/s stable. Written and verbal after care instructions given and explained. Patient verbalized understanding. Ambulatory with steady gait. All questions addressed prior to discharge. Advised to follow up with PMD. WRISTBAND REMOVED.
== END 2021-01-28 21:31 | disposition home or self-care (01) ==
LOC: MED 20:32
DX: F41.9 Anxiety disorder, unspecified (principal); I11.9 Hypertensive heart disease without heart failure; K21.9 Gastro-esophageal reflux disease without esophagitis; Z88.2 Allergy status to sulfonamides; Z88.5 Allergy status to narcotic agent; Z79.899 Other long term (current) drug therapy
CPT/HCPCS: 99281

== ENCOUNTER 2021-02-14 19:53 | Emergency (ER) | payer BC ==
[~2021-02-14] VITALS: Ht 182.9 cm; Wt 92.5 kg
[2021-02-14 20:03] VITALS: BP 228/113
--- NOTE | 2021-02-14 20:06 | NUR ---
TO LOBBY A/W BED AMBULATORY
--- NOTE | 2021-02-14 20:15 | NUR ---
PT AMBULATED TO ER BED 7 W/ STEADY GAIT.
--- NOTE | 2021-02-14 20:20 | NUR ---
DR. HOGAN AT BEDSIDE
[2021-02-14 20:46] LABS: BASOPHILS % (AUTO) 0.5 % (0.0-2.0); EOSINOPHILS # (AUTO) 0.1 K/uL (0-0.4); HEMATOCRIT 44.6 % (36-52); HEMOGLOBIN 15.1 g/dL (12.0-18.0); LYMPHOCYTES # (AUTO) 1.9 K/uL (2.0-11.5); LYMPHOCYTES % (AUTO) 37.7 % (20.5-51.1); MEAN CORPUSCULAR HEMOGLOBIN 31 pg (27-31); MEAN CORPUSCULAR HGB CONC 34 g/dL (33-37); MONOCYTES # (AUTO) 0.7 K/uL (0.8-1.0); NEUTROPHILS # (AUTO) 2.3 K/uL (1.8-7.7); NEUTROPHILS % (AUTO) 45.8 % (42.2-75.2); PLATELET COUNT (AUTO) 228 K/uL (140-450); RED BLOOD CELL COUNT(AUTO) 4.96 MIL/uL (4.20-6.10)
[2021-02-14 21:02] LABS: ALBUMIN 3.9 g/dL (3.4-5.0); ANION GAP 13.4 (8-16); ASPARTATE AMINOTRANSFERASE 21 U/L (15-37); CARBON DIOXIDE 28.2 mmol/L (21-32); CHLORIDE 102 mmol/L (98-107); GLUCOSE 120 mg/dL (74-106); LIPASE 89 U/L (73-393); POTASSIUM 3.6 mmol/L (3.5-5.1); SODIUM SERUM 140 mmol/L (136-145); TOTAL BILIRUBIN 0.5 mg/dL (0.0-1.0); UREA NITROGEN, BLOOD 17 mg/dL (7-18)
--- NOTE | 2021-02-14 21:50 | NUR ---
CT AT BEDSIDE.
--- NOTE | 2021-02-14 22:05 | NUR ---
PT. BACK FROM CT.
[2021-02-15 00:35] VITALS: BP 105/62
--- NOTE | 2021-02-15 00:35 | NUR ---
Patient discharged with v/s stable. Written and verbal after care instructions given and explained. Patient verbalized understanding. Ambulatory with steady gait. ID BAND REMOVED. All questions addressed prior to discharge. Advised to follow up with PMD.
== END 2021-02-15 00:35 | disposition home or self-care (01) ==
LOC: MED 19:53
DX: I10 Essential (primary) hypertension (principal); R10.9 Unspecified abdominal pain; K21.9 Gastro-esophageal reflux disease without esophagitis; Z88.2 Allergy status to sulfonamides; Z88.5 Allergy status to narcotic agent; Z79.899 Other long term (current) drug therapy
CPT/HCPCS: 36415; 71275; 74174; 80053; 83690; 84484; 85025; 99285; Q9967

== ENCOUNTER 2021-03-04 20:05 | Emergency (ER) | payer BC ==
[~2021-03-04] VITALS: Ht 182.9 cm; Wt 90.7 kg
[2021-03-04 20:05] VITALS: BP 172/88
--- NOTE | 2021-03-04 20:27 | NUR ---
PT BIB FOR C/O ELEVATED BP AND HEADACHE. PT STATES HE HAD A VERY BUSY DAY AND IT WAS HOT OUTSIDE, THEN HE BEGAN TO EXPERIENCE A HEADACHE, IN WHICH HE CHECKED HIS BP AT HOME AND IT READ "206/101." PT REPORTS THIS CAUSED HIM TO HAVE A PANIC ATTACK WELL. PT REPORTS HX OF HTN AND PANIC ATTACKS. PT REPORTS HEADACHE PAIN 4/10 THAT DOES NOT RADIATE. DENIES CP, SOB, N/V/D, FEVER, CHILLS. A & O X4. AMBULATORY. SEE COMPLETE ASSESSMENT FOR FURTHER DETAILS. MED HX: PANIC ATTACKS, HTN, GERD ALLERGIES: MORPHINE, SULFA
--- NOTE | 2021-03-04 20:55 | NUR ---
ERMD AT BEDSIDE.
[2021-03-04 21:42] VITALS: BP 107/83
== END 2021-03-04 21:30 | disposition home or self-care (01) ==
LOC: MED 20:05
DX: F41.9 Anxiety disorder, unspecified (principal); I10 Essential (primary) hypertension; K21.9 Gastro-esophageal reflux disease without esophagitis; Z88.2 Allergy status to sulfonamides; Z88.5 Allergy status to narcotic agent; Z79.899 Other long term (current) drug therapy
CPT/HCPCS: 99285

== ENCOUNTER 2021-03-07 19:53 | Emergency (ER) | payer BC ==
[~2021-03-07] VITALS: Ht 182.9 cm; Wt 90.7 kg
[2021-03-07 20:15] VITALS: BP 169/114
--- NOTE | 2021-03-07 20:22 | NUR ---
PT AMBULATED TO BED 8
--- NOTE | 2021-03-07 21:24 | NUR ---
Dr. Davis examining patient.
--- NOTE | 2021-03-07 21:27 | NUR ---
Patient assessment completed per ERMD, no nursing interventions required at this time.
[2021-03-07 21:58] VITALS: BP 146/86
== END 2021-03-07 22:15 | disposition home or self-care (01) ==
LOC: MED 19:53
DX: I11.9 Hypertensive heart disease without heart failure (principal); K21.9 Gastro-esophageal reflux disease without esophagitis; Z88.2 Allergy status to sulfonamides; Z88.5 Allergy status to narcotic agent; Z79.899 Other long term (current) drug therapy
CPT/HCPCS: 99281

== ENCOUNTER 2021-03-15 15:54 | Emergency (ER) | payer BC ==
[~2021-03-15] VITALS: Ht 182.9 cm; Wt 90.7 kg
[2021-03-15 16:10] VITALS: BP 150/104
--- NOTE | 2021-03-15 16:20 | NUR ---
Patient to bed 11. RN evaluating the patient at bedside.
--- NOTE | 2021-03-15 16:28 | NUR ---
Dr. Rushing is evaluating the patient at bedside.
--- NOTE | 2021-03-15 16:36 | NUR ---
75 Y/O MALE C/O HIGH BP , BUCKLEY, DIZZINESS X 3 DAYS. PT DENIES N/V, DENIES FEVER/CHILLS. BP 150/104 IN TRIAGE. PMH: HTN ALLERGIES: SULFA, MORPHINE
[2021-03-15] MEDS ORDERED: hydroCHLOROthiazide 25 MG TAB PO ONE (16:40)
[2021-03-15 17:35] VITALS: BP 150/104
--- NOTE | 2021-03-15 18:26 | NUR ---
Patient discharged with v/s stable. Written and verbal after care instructions given HTN and explained. Patient verbalized understanding. Ambulatory with steady gait. All questions addressed prior to discharge. Advised to follow up with PMD.
== END 2021-03-15 18:26 | disposition home or self-care (01) ==
LOC: MED 15:54
DX: I10 Essential (primary) hypertension (principal); F41.9 Anxiety disorder, unspecified; K21.9 Gastro-esophageal reflux disease without esophagitis; Z79.899 Other long term (current) drug therapy; Z88.2 Allergy status to sulfonamides; Z88.5 Allergy status to narcotic agent
CPT/HCPCS: 93005; 99283

== ENCOUNTER 2021-03-18 15:24 | Emergency (ER) | payer BC ==
[~2021-03-18] VITALS: Ht 182.9 cm; Wt 90.7 kg
[2021-03-18 15:33] VITALS: BP 176/95
[2021-03-18 16:28] VITALS: BP 176/95
== END 2021-03-18 16:29 | disposition home or self-care (01) ==
LOC: MED 15:24
DX: I10 Essential (primary) hypertension (principal); K21.9 Gastro-esophageal reflux disease without esophagitis; Z79.899 Other long term (current) drug therapy; Z88.2 Allergy status to sulfonamides; Z88.5 Allergy status to narcotic agent
CPT/HCPCS: 99281

== ENCOUNTER 2021-04-12 18:15 | Emergency (ER) | payer BC ==
[~2021-04-12] VITALS: Ht 182.9 cm; Wt 90.7 kg
[2021-04-12 18:23] VITALS: BP 201/99
[2021-04-12] MEDS ORDERED: DICYCLOMINE HCL LIQUID 20 MG, ALUMINUM HYD/MAG/SIMETHICONE 30 ML, LIDOCAINE VISCOUS 2% ... PO ONE ×3 (18:50)
[2021-04-12] MEDS ORDERED: ONDANSETRON 4 MG ODT PO ONE (18:50)
[2021-04-12] MEDS ORDERED: ALUMINUM HYD/MAG/SIMETHICONE 30 ML UDC ONE (19:00)
[2021-04-12] MEDS ORDERED: DICYCLOMINE HCL LIQUID 10 MG/5 ML UDC ONE (19:00)
--- NOTE | 2021-04-12 19:05 | NUR ---
Patient ambulated to bed 08 with steady/even gait.
--- NOTE | 2021-04-12 19:07 | NUR ---
75 y/o M BIB self from home with c/c abdominal pain x 2 hours. Patient A&Ox4, ambulatory, reports at 1700 he ate a sausage sandwich and began experiencing epigastric pain 1730. Patient states 8/10, dull/intermittent, radiating up his abdomen. Patient denies any medications prior to arrival and reports bowel movement prior to bed placement alleviated his pain from 8/10 to 5/10. Patient denies chest pain, back pain, urinary symptoms, fever, chills, diarrhea, constipation. Patient states nausea with no vomiting, however, denies nausea at this time. VSS; BP 147/95. Last BM today normal. Patient states compliant with BP medications. Bed locked in lowest position, side rails x 1, call light in reach. PMH: HTN, anxiety Meds: atenolol, benazapril Allergies: sulfa, morphine Sx: Denies
--- NOTE | 2021-04-12 19:13 | NUR ---
Report and transfer of care endorsed to NICKOLAS Cote.
--- NOTE | 2021-04-12 19:30 | NUR ---
AWAKE AND ALERT, RESPIRATIONS REGULAR AND UNLABORED. PREPARING FOR DISCHARGE
[2021-04-12] MEDS ORDERED: ONDA-24 SL (19:40)
[2021-04-12 19:50] VITALS: BP 152/85
== END 2021-04-12 19:50 | disposition home or self-care (01) ==
LOC: MED 18:15
DX: A05.9 Bacterial foodborne intoxication, unspecified (principal); K21.9 Gastro-esophageal reflux disease without esophagitis; I11.9 Hypertensive heart disease without heart failure; Z88.2 Allergy status to sulfonamides; Z88.5 Allergy status to narcotic agent
CPT/HCPCS: 99283; Q0162

== ENCOUNTER 2021-11-25 16:11 | Observation (INO) | payer BC, SELFPAY ==
[~2021-11-25] VITALS: Ht 182.9 cm; Wt 95.7 kg
[~2021-11-25 16:11] MED LIST changes: +ONDA-188 SL
[2021-11-25 16:17] VITALS: BP 122/100
--- NOTE | 2021-11-25 16:50 | NUR ---
76 Y/O MALE BIB SELF FOR C/O CHEST PAIN FOR APPROX. 1 WK. PT STATES PAIN IS RATED 7/10 AND IS DULL "SOMETIMES SHARP" WITH INTERMITTENT NUMBNESS AND TINGLING SENSATION.PT A&O X4 AND IS AMBULATORY. PT. DENIES SOB, BUCKLEY AND IS SPEAKING IN FULL SENTENCES. PT IS PLACED ON RESEARCH INVESTIGATOR. BED LOCKED IN LOWEST POSITION, SIDE RAILS X1. PMH:HTN, ANXIETY MEDS: ATENOLOL, BENALAPRIL, MIRTAZAPINE,LORAZEPAM ALLERGY: SULFA, MORPHINE
--- NOTE | 2021-11-25 16:52 | NUR ---
LAB AT BEDSIDE
--- NOTE | 2021-11-25 16:58 | NUR ---
EKG PERFORMED AT PT BEDSIDE
--- NOTE | 2021-11-25 17:07 | NUR ---
XRAY AT BEDSIDE
[2021-11-25 17:08] LABS: BASOPHILS % (AUTO) 0.5 % (0.0-2.0); EOSINOPHILS # (AUTO) 0.2 K/uL (0-0.4); EOSINOPHILS % (AUTO) 3.4 % (0.0-4.0); HEMATOCRIT 42.9 % (36-52); HEMOGLOBIN 14.8 g/dL (12.0-18.0); LYMPHOCYTES # (AUTO) 1.9 K/uL (2.0-11.5); LYMPHOCYTES % (AUTO) 38.9 % (20.5-51.1); MEAN CORPUSCULAR HEMOGLOBIN 31 pg (27-31); MEAN CORPUSCULAR HGB CONC 35 g/dL (33-37); MEAN CORPUSCULAR VOLUME 88.8 fL (80-94); MONOCYTES # (AUTO) 0.6 K/uL (0.8-1.0); MONOCYTES % (AUTO) 12.4 % (1.7-9.3); NEUTROPHILS # (AUTO) 2.2 K/uL (1.8-7.7); NEUTROPHILS % (AUTO) 44.8 % (42.2-75.2); PLATELET COUNT (AUTO) 220 K/uL (140-450); RED BLOOD CELL COUNT(AUTO) 4.83 MIL/uL (4.20-6.10); WHITE BLOOD COUNT (AUTO) 4.8 K/uL (4.8-10.8)
--- NOTE | 2021-11-25 17:12 | NUR ---
XR AT PATIENT BEDSIDE
--- NOTE | 2021-11-25 17:31 | NUR ---
PT MOVED TO BED 4 VIA [facility]
[2021-11-25 17:38] LABS: ALBUMIN 3.9 g/dL (3.4-5.0); ANION GAP 10.7 (8-16); ASPARTATE AMINOTRANSFERASE 31 U/L (15-37); CARBON DIOXIDE 27.1 mmol/L (21-32); CHLORIDE 103 mmol/L (98-107); CREATININE 0.9 mg/dL (0.6-1.3); GLUCOSE 117 mg/dL (74-106); POTASSIUM 3.8 mmol/L (3.5-5.1); SODIUM SERUM 137 mmol/L (136-145); TOTAL BILIRUBIN 0.6 mg/dL (0.0-1.0); UREA NITROGEN, BLOOD 12 mg/dL (7-18)
--- NOTE | 2021-11-25 18:20 | NUR ---
PT. RESTING IN NO DISTRESS
[2021-11-25] MEDS ORDERED: LISI40TA8 PO (18:38)
[2021-11-25] MEDS ORDERED: MIRT7.5T14 PO (18:38)
[2021-11-25] MEDS ORDERED: LORA-476 PO (18:38)
--- NOTE | 2021-11-25 18:39 | NUR ---
TONE SORENSEN COLLECTED AND WALKED TO LAB
[2021-11-25] MEDS ORDERED: ASPIRIN 325 MG TAB PO ONE (19:05)
--- NOTE | 2021-11-25 19:23 | NUR ---
Pt report given to MONY NEVAREZ. Transfer of care at this time.
--- NOTE | 2021-11-25 19:54 | NUR ---
udated pt about status. pt relaxing in bed
[2021-11-25] MEDS ORDERED: ONDANSETRON 4 MG/2 ML VIAL IVP PRN (20:50)
[2021-11-25] MEDS ORDERED: ACETAMINOPHEN 325 MG TAB PO PRN (20:50)
[2021-11-25] MEDS ORDERED: MORPHINE SULFATE 2 MG/ML SYR IVP PRN (20:50)
--- NOTE | 2021-11-25 21:29 | NUR ---
pt resting in supine postion, offered pt pain meds and nausea meds.not needed at this time.
--- NOTE | 2021-11-25 23:15 | NUR ---
Patient appears to be resting comfortably in bed. Vital Signs within normal limits. Respirations even and unlabored. pt requested lights off
--- NOTE | 2021-11-26 01:56 | NUR ---
Patient will be admitted to care of [facility]. Admited to TELE. Will go to [facility]. Belongings list completed. Report to NICKOLAS STAPLETON .
--- NOTE | 2021-11-26 02:05 | NUR ---
PATIENT WAS BROUGHT TO TELEMETRY UNIT VIA GURNEY FROM ER WITH THE CC: OF CHEST PAIN. AAOX4 ON ROOM AIR, AMBULATORY. NO ACUTE DISTRESS. BREATHING REGULAR NON LABORED. MRSA SCREENING DONE. NO COMPLAINTS OF PAIN. SAFETY MEASURES IN PLACE. CALL LIGHT WITHIN REACH. WILL CONTINUE TO MONITOR.
[2021-11-26 04:00] VITALS: BP 145/77
--- NOTE | 2021-11-26 07:40 | NUR ---
ENDORSED PATIENT TO AM NURSE FOR CONTINUITY OF CARE. PT IS STABLE.
--- NOTE | 2021-11-26 07:42 | NUR ---
RECEIVED PATIENT FROM IMPRESSION PRINTER NURSE FOR CONTINUITY OF CARE. PT IS AOX4, ABLE TO MAKE NEEDS KNOWN. RESPIRATIONS EVEN AND UNLABORED. ON ROOM AIR. NO DISTRESS NOTED. SKIN IS WARM, DRY, AND INTACT. IV SITE ON LH 22G INTACT AND PATENT. DENIES CHEST PAIN AT THE MOMENT. PLAN OF CARE DISCUSSED. SAFETY PRECAUTIONS IN PLACE. CALL LIGHT WITHIN REACH. WILL CONTINUE TO MONITOR.
[2021-11-26 07:53] LABS: ANION GAP 9.3 (8-16); CARBON DIOXIDE 28.6 mmol/L (21-32); CHLORIDE 105 mmol/L (98-107); CREATININE 0.8 mg/dL (0.6-1.3); GLUCOSE 103 mg/dL (74-106); POTASSIUM 3.9 mmol/L (3.5-5.1); SODIUM SERUM 139 mmol/L (136-145); UREA NITROGEN, BLOOD 15 mg/dL (7-18)
[2021-11-26 08:00] VITALS: BP 147/97
[2021-11-26 08:51] LABS: BASOPHILS % (AUTO) 0.9 % (0.0-2.0); EOSINOPHILS # (AUTO) 0.1 K/uL (0-0.4); EOSINOPHILS % (AUTO) 3.5 % (0.0-4.0); HEMATOCRIT 43.2 % (36-52); HEMOGLOBIN 14.7 g/dL (12.0-18.0); LYMPHOCYTES # (AUTO) 1.6 K/uL (2.0-11.5); LYMPHOCYTES % (AUTO) 46.3 % (20.5-51.1); MEAN CORPUSCULAR HEMOGLOBIN 30 pg (27-31); MEAN CORPUSCULAR HGB CONC 34 g/dL (33-37); MEAN CORPUSCULAR VOLUME 89.5 fL (80-94); MONOCYTES # (AUTO) 0.4 K/uL (0.8-1.0); MONOCYTES % (AUTO) 12.6 % (1.7-9.3); NEUTROPHILS # (AUTO) 1.3 K/uL (1.8-7.7); NEUTROPHILS % (AUTO) 36.7 % (42.2-75.2); PLATELET COUNT (AUTO) 194 K/uL (140-450); RED BLOOD CELL COUNT(AUTO) 4.83 MIL/uL (4.20-6.10); RED CELL DISTRIBUTION WIDTH 14.4 % (11.6-13.7); WHITE BLOOD COUNT (AUTO) 3.6 K/uL (4.8-10.8)
[2021-11-26] MEDS ORDERED: atenoloL 25 MG TAB PO SCH (09:00)
[2021-11-26] MEDS ORDERED: NON-FORMULARY ITEM (Lisinopril 1 TAB) PO SCH (09:00)
[2021-11-26] MEDS ORDERED: LORazepam 1 MG TAB PO SCH (09:00)
--- NOTE | 2021-11-26 09:35 | NUR ---
PATIENT HAS BEEN SCREENED AND CATEGORIZED LOW NUTRITION RISK. PATIENT WILL BE SEEN WITHIN 7 DAYS OF ADMISSION. 12/02/[address]
[2021-11-26] MEDS ORDERED: lisinopriL 20 MG TAB PO SCH (09:55)
--- NOTE | 2021-11-26 10:27 | NUR ---
ALL SCHEDULED MEDS GIVEN. PT IS STABLE. NO DISTRESS NOTED. WILL CONTINUE TO MONITOR.
[2021-11-26 12:00] VITALS: BP 149/86
--- NOTE | 2021-11-26 14:10 | NUR ---
DR. PIEDRA AT PATIENT'S BEDSIDE.
[2021-11-26 14:48] VITALS: BP 149/86
--- NOTE | 2021-11-26 14:52 | NUR ---
ENDORSED DISCHARGE INSTRUCTIONS TO PATIENT. PT VERBALIZED UNDERSTANDING AND SIGNED DISCHARGE FORMS.
--- NOTE | 2021-11-26 15:10 | NUR ---
PT DISCHARGED OFF THE UNIT. ESCORTED PATIENT TO THE FRONT LOBBY. PT WAS STABLE PRIOR TO DISCHARGE
[2021-11-26] MEDS ORDERED: MIRTAZAPINE PO SCH (17:00)
[2021-11-26] MEDS ORDERED: MIRTAZAPINE 15 MG TAB PO SCH (21:00)
[2021-11-27] MEDS ORDERED: lisinopriL 20 MG TAB PO SCH (09:00)
== END 2021-11-26 15:15 | disposition home or self-care (01) ==
LOC: MED 16:11 → MTU 20:52
PROVIDERS: ADMIT Hospitalist; ATTEND Hospitalist
DX: M94.0 Chondrocostal junction syndrome [Tietze] (principal); Z20.822 Contact with and (suspected) exposure to COVID-19; S29.011A Strain of muscle and tendon of front wall of thorax, initial encounter; I10 Essential (primary) hypertension; K58.9 Irritable bowel syndrome, unspecified; M19.90 Unspecified osteoarthritis, unspecified site; K21.9 Gastro-esophageal reflux disease without esophagitis; F41.9 Anxiety disorder, unspecified; X50.0XXA Overexertion from strenuous movement or load, initial encounter; Y93.89 Activity, other specified; Y92.89 Other specified places as the place of occurrence of the external cause; Z79.899 Other long term (current) drug therapy
CPT/HCPCS: 36415; 71045; 80048; 80053; 83735; 84484; 85025; 87081; 87426; 93005; 99285; G0378; Q0092

== ENCOUNTER 2022-03-26 17:10 | Emergency (ER) | payer BC ==
[~2022-03-26] VITALS: Ht 182.9 cm; Wt 81.6 kg
[~2022-03-26 17:10] MED LIST changes: -ATIVAN; +LISI40TA8 PO; +LORA-476 PO; +MIRT7.5T14 PO; -MOTRIN; -OMEP40EC24 PO; -ONDA-188 SL; -PAX20 PO; -TRAZ-343 PO
[2022-03-26 17:16] VITALS: BP 179/106
[2022-03-26 18:12] LABS: BASOPHILS % (AUTO) 0.8 % (0.0-2.0); EOSINOPHILS # (AUTO) 0.1 K/uL (0-0.4); EOSINOPHILS % (AUTO) 3.2 % (0.0-4.0); HEMATOCRIT 45.7 % (36-52); HEMOGLOBIN 15.6 g/dL (12.0-18.0); LYMPHOCYTES # (AUTO) 1.7 K/uL (2.0-11.5); LYMPHOCYTES % (AUTO) 37.7 % (20.5-51.1); MEAN CORPUSCULAR HEMOGLOBIN 31 pg (27-31); MEAN CORPUSCULAR HGB CONC 34 g/dL (33-37); MEAN CORPUSCULAR VOLUME 89.5 fL (80-94); MONOCYTES # (AUTO) 0.6 K/uL (0.8-1.0); MONOCYTES % (AUTO) 13.5 % (1.7-9.3); NEUTROPHILS % (AUTO) 44.8 % (42.2-75.2); PLATELET COUNT (AUTO) 221 K/uL (140-450); RED CELL DISTRIBUTION WIDTH 14.3 % (11.6-13.7); WHITE BLOOD COUNT (AUTO) 4.5 K/uL (4.8-10.8)
[2022-03-26 18:25] LABS: ANION GAP 12.2 (8-16); CHLORIDE 103 mmol/L (98-107); CREATININE 0.8 mg/dL (0.6-1.3); GLUCOSE 140 mg/dL (74-106); POTASSIUM 4.2 mmol/L (3.5-5.1); SODIUM SERUM 137 mmol/L (136-145); UREA NITROGEN, BLOOD 13 mg/dL (7-18)
[2022-03-26 18:29] LABS: MAGNESIUM 1.8 mg/dL (1.8-2.4); PHOSPHORUS 3.1 mg/dL (2.5-4.9)
[2022-03-26 19:52] VITALS: BP 148/65
== END 2022-03-26 19:52 | disposition home or self-care (01) ==
LOC: MED 17:10
DX: M62.838 Other muscle spasm (principal); I10 Essential (primary) hypertension; F41.9 Anxiety disorder, unspecified
CPT/HCPCS: 36415; 80048; 81002; 83735; 84100; 85025; 99283

== ENCOUNTER 2022-07-03 11:05 | Emergency (ER) | payer BC ==
[~2022-07-03] VITALS: Ht 182.9 cm; Wt 96.6 kg
[2022-07-03 11:11] VITALS: BP 163/98
[2022-07-03 13:19] VITALS: BP 165/88
== END 2022-07-03 13:19 | disposition home or self-care (01) ==
LOC: MED 11:05
DX: S06.0X0A Concussion without loss of consciousness, initial encounter (principal); I10 Essential (primary) hypertension; I25.10 Atherosclerotic heart disease of native coronary artery without angina pectoris; K21.9 Gastro-esophageal reflux disease without esophagitis; Z88.2 Allergy status to sulfonamides; Z88.5 Allergy status to narcotic agent; Z79.899 Other long term (current) drug therapy; W22.8XXA Striking against or struck by other objects, initial encounter; Y93.89 Activity, other specified; Y92.89 Other specified places as the place of occurrence of the external cause; Y99.8 Other external cause status
CPT/HCPCS: 70450; 99284

== ENCOUNTER 2022-07-04 17:48 | Emergency (ER) | payer BC ==
[~2022-07-04] VITALS: Ht 182.9 cm; Wt 96.6 kg
[2022-07-04 18:28] VITALS: BP 185/110
--- NOTE | 2022-07-04 18:35 | NUR ---
C/O 6/10 LEFT CHEST PAIN AT THIS TIME.
--- NOTE | 2022-07-04 18:39 | NUR ---
Patient ambulated with steady gait to bed 2.
--- NOTE | 2022-07-04 18:42 | NUR ---
in [facility] bibs for headache, dizziness, chest pain, high bp x 4 days. hx htn. bp 180/100. no facial droop. no slurred pseech. -arm drift. was here yesterday fro same complaint. aao x4. reps even and nonlabored. ambulatory
--- NOTE | 2022-07-04 19:11 | NUR ---
report given to shay cuello
[2022-07-04] MEDS ORDERED: KETOROLAC 30 MG/ML VIAL IM ONE (19:15)
[2022-07-04] MEDS ORDERED: ACETAMINOPHEN EXTRA STRENGTH 500 MG TAB PO ONE (19:15)
[2022-07-04] MEDS ORDERED: LORazepam 1 MG TAB PO ONE (19:15)
--- NOTE | 2022-07-04 19:15 | NUR ---
PATIENT REFUSED TORODAL AND ACETAMINOPHEN AT THIS TIME. STATED THAT THE HEADACHE WAS 4/10 AND TOLERABLE. MD AWARE.
--- NOTE | 2022-07-04 19:20 | NUR ---
ASSUMED CARE FOR PATIENT PATIENT AAOX4 AND REQUESTED TO SPEAK TO . AWARE.
[2022-07-04 19:28] LABS: BASOPHILS % (AUTO) 0.8 % (0.0-2.0); EOSINOPHILS # (AUTO) 0.1 K/uL (0-0.4); EOSINOPHILS % (AUTO) 1.7 % (0.0-4.0); HEMATOCRIT 44.8 % (36-52); HEMOGLOBIN 15.3 g/dL (12.0-18.0); LYMPHOCYTES # (AUTO) 1.1 K/uL (2.0-11.5); LYMPHOCYTES % (AUTO) 26.7 % (20.5-51.1); MEAN CORPUSCULAR HEMOGLOBIN 31 pg (27-31); MEAN CORPUSCULAR HGB CONC 34 g/dL (33-37); MEAN CORPUSCULAR VOLUME 89.7 fL (80-94); MONOCYTES # (AUTO) 0.5 K/uL (0.8-1.0); MONOCYTES % (AUTO) 12.2 % (1.7-9.3); NEUTROPHILS # (AUTO) 2.5 K/uL (1.8-7.7); NEUTROPHILS % (AUTO) 58.6 % (42.2-75.2); PLATELET COUNT (AUTO) 232 K/uL (140-450); RED BLOOD CELL COUNT(AUTO) 4.99 MIL/uL (4.20-6.10); RED CELL DISTRIBUTION WIDTH 14.1 % (11.6-13.7); WHITE BLOOD COUNT (AUTO) 4.3 K/uL (4.8-10.8)
--- NOTE | 2022-07-04 19:30 | NUR ---
PATIETN SITTING IN BED. STATED THAT HE WAS FEELING VERY ANXIOUS AT THIS TIME. ATIVAN WAS GIVEN ORDERED. TOLERATED WELL. PATIENT BP 155/93. ALL NEEDS MET
[2022-07-04 19:42] LABS: ANION GAP 10.6 (8-16); CARBON DIOXIDE 28.4 mmol/L (21-32); CHLORIDE 104 mmol/L (98-107); GLUCOSE 114 mg/dL (74-106); SODIUM SERUM 139 mmol/L (136-145); UREA NITROGEN, BLOOD 10 mg/dL (7-18)
[2022-07-04 22:18] VITALS: BP 114/75
== END 2022-07-04 22:18 | disposition home or self-care (01) ==
LOC: MED 17:48
DX: I10 Essential (primary) hypertension (principal); K21.9 Gastro-esophageal reflux disease without esophagitis; F41.9 Anxiety disorder, unspecified; Z88.5 Allergy status to narcotic agent; Z88.2 Allergy status to sulfonamides; Z79.899 Other long term (current) drug therapy
CPT/HCPCS: 36415; 80048; 84484; 85025; 93005; 99285; J1885

== ENCOUNTER 2022-08-11 16:44 | Emergency (ER) | payer BC ==
[~2022-08-11] VITALS: Ht 182.9 cm; Wt 95.3 kg
[2022-08-11 16:44] VITALS: BP 238/138
[2022-08-11] MEDS ORDERED: CLONIDINE HYDROCHLORIDE 0.1 MG TAB PO ONE (17:00)
--- NOTE | 2022-08-11 17:20 | NUR ---
77 y/o male biba from home, pt presents to [facility] c/o high blood presure reads at home, pt states he has been having high blood pressure for 1 week and has been unable to lower it with medication. denies one sided weakness or aloc. equal strengths on upper and lower bl extremities. a&ox4, ambulates with steady gait. skin pink/warm/dry/intact. ermd made aware. pmh: htn allergy: sulfa med: catapres
--- NOTE | 2022-08-11 18:44 | NUR ---
per md burrell, check bp at 1900 and then dx if vss.
[2022-08-11 19:18] VITALS: BP 141/81
== END 2022-08-11 19:18 | disposition home or self-care (01) ==
LOC: MED 16:44
DX: I16.0 Hypertensive urgency (principal); R51.9 Headache, unspecified; Z20.822 Contact with and (suspected) exposure to COVID-19; K21.9 Gastro-esophageal reflux disease without esophagitis; I10 Essential (primary) hypertension; Z79.899 Other long term (current) drug therapy; Z88.2 Allergy status to sulfonamides; Z88.5 Allergy status to narcotic agent
CPT/HCPCS: 70450; 99285

== ENCOUNTER 2023-01-26 22:24 | Emergency (ER) | payer BC ==
[~2023-01-26] VITALS: Ht 182.9 cm; Wt 74.8 kg
[2023-01-26 22:28] VITALS: BP 173/89
--- NOTE | 2023-01-26 22:38 | NUR ---
Pt to bed 11.
--- NOTE | 2023-01-26 22:40 | NUR ---
Patient resting in bed, A/Ox4, chest rise and fall symmetrical, no c/o pain or s/s of distress, on monitor.
--- NOTE | 2023-01-26 22:40 | NUR ---
ER physician assessing patient at bedside.
--- NOTE | 2023-01-26 23:20 | NUR ---
Patient resting in bed, A/Ox4, chest rise and fall symmetrical, no c/o pain or s/s of distress, on monitor.
[2023-01-26 23:47] VITALS: BP 132/74
--- NOTE | 2023-01-26 23:47 | NUR ---
Note kena in EDM - 01/27/23 at 0045 by [id number] Patient discharged with v/s stable. Written and verbal after care instructions given and explained. Patient verbalized understanding. Ambulatory with steady gait. All questions addressed prior to discharge. Advised to follow up with PMD. Benny baker requested by [employer]ing [employer] Operator, Paula OLMOS, for patient.
--- NOTE | 2023-01-26 23:48 | NUR ---
Patient discharged with v/s stable. Written and verbal after care instructions given and explained. Patient verbalized understanding. Ambulatory with steady gait. All questions addressed prior to discharge. Advised to follow up with PMD. [employer] truck driver requested by [employer], Paula OLMOS, for patient.
--- NOTE | 2023-01-27 00:42 | NUR ---
Patient's [employer] route driver arrived to pick patient up. [employer] route driverJovani, driving white [employer], License plate number [id number], verbalized understading of address to drop patient off. Patient A/Ox4, left in [employer] vehicle safely, with seatbelt on.
== END 2023-01-26 23:55 | disposition home or self-care (01) ==
LOC: MED 22:24
DX: I10 Essential (primary) hypertension (principal); F41.9 Anxiety disorder, unspecified; K21.9 Gastro-esophageal reflux disease without esophagitis; I25.10 Atherosclerotic heart disease of native coronary artery without angina pectoris; Z88.5 Allergy status to narcotic agent; Z88.2 Allergy status to sulfonamides; Z79.899 Other long term (current) drug therapy
CPT/HCPCS: 99283

== ENCOUNTER 2023-09-21 13:06 | Emergency (ER) | payer BC, MEDICAID ==
[~2023-09-21] VITALS: Ht 182.9 cm; Wt 90.7 kg
[2023-09-21 13:29] VITALS: BP 167/90; PULSE 94; RESP 20; TEMP 98.9; O2SAT 96
[2023-09-21] MEDS ORDERED: ACETAMINOPHEN 325 MG TAB PO ONE (14:35)
[2023-09-21 15:05] VITALS: BP 146/84; PULSE 76; RESP 16; TEMP 98.9; O2SAT 96
== END 2023-09-21 15:05 | disposition home or self-care (01) ==
LOC: MED 13:06
DX: I11.9 Hypertensive heart disease without heart failure (principal); R51.9 Headache, unspecified; K21.9 Gastro-esophageal reflux disease without esophagitis; Z88.2 Allergy status to sulfonamides; Z88.5 Allergy status to narcotic agent
CPT/HCPCS: 99281

== ENCOUNTER 2024-01-06 21:03 | Emergency (ER) | payer BC, MEDICAID ==
[~2024-01-06] VITALS: Ht 182.9 cm; Wt 95.3 kg
[2024-01-06 21:26] VITALS: BP 165/89; PULSE 70; RESP 15; TEMP 98; O2SAT 96
[2024-01-06 21:56] VITALS: TEMP 98; O2SAT 99
[2024-01-06 22:09] LABS: BASOPHILS % (AUTO) 0.5 % (0.0-2.0); EOSINOPHILS # (AUTO) 0.2 K/uL (0-0.4); EOSINOPHILS % (AUTO) 3.2 % (0.0-4.0); HEMATOCRIT 45.1 % (36-52); HEMOGLOBIN 15.6 g/dL (12.0-18.0); LYMPHOCYTES # (AUTO) 2.2 K/uL (2.0-11.5); LYMPHOCYTES % (AUTO) 38.2 % (20.5-51.1); MEAN CORPUSCULAR HEMOGLOBIN 31 pg (27-31); MEAN CORPUSCULAR HGB CONC 35 g/dL (33-37); MONOCYTES # (AUTO) 0.7 K/uL (0.8-1.0); MONOCYTES % (AUTO) 11.8 % (1.7-9.3); NEUTROPHILS # (AUTO) 2.7 K/uL (1.8-7.7); NEUTROPHILS % (AUTO) 46.3 % (42.2-75.2); PLATELET COUNT (AUTO) 206 K/uL (140-450); RED BLOOD CELL COUNT(AUTO) 4.95 MIL/uL (4.20-6.10); RED CELL DISTRIBUTION WIDTH 13.9 % (11.6-13.7); WHITE BLOOD COUNT (AUTO) 5.7 K/uL (4.8-10.8)
[2024-01-06] MEDS: ALUMINUM HYD/MAG/SIMETHICONE 30 ML UDC PO ONE (22:16)
[2024-01-06] MEDS: FAMOTIDINE 20 MG TAB PO ONE (22:16)
[2024-01-06 22:31] LABS: ALANINE AMINOTRANSFERASE 48 U/L (12-78); ALBUMIN 4.1 g/dL (3.4-5.0); ALKALINE PHOSPHATASE 102 U/L (50-136); ANION GAP 11.3 (8-16); ASPARTATE AMINOTRANSFERASE 38 U/L (15-37); CALCIUM 9.3 mg/dL (8.5-10.1); CARBON DIOXIDE 29.9 mmol/L (21-32); CHLORIDE 101 mmol/L (98-107); CREATININE 0.9 mg/dL (0.6-1.3); GLUCOSE 120 mg/dL (74-106); LIPASE 29 U/L (16-77); POTASSIUM 4.2 mmol/L (3.5-5.1); SODIUM SERUM 138 mmol/L (136-145); TOTAL BILIRUBIN 0.7 mg/dL (0.0-1.0); TOTAL PROTEIN, SERUM 7.5 g/dL (6.4-8.2); UREA NITROGEN, BLOOD 13 mg/dL (7-18)
[2024-01-07] MEDS ORDERED: ACETAMINOPHEN EXTRA STRENGTH 500 MG TAB PO ONE (00:55)
[2024-01-07] MEDS ORDERED: METOCLOPRAMIDE 10 MG/2 ML INJ VIAL IVP ONE (00:55)
[2024-01-07 01:19] VITALS: O2SAT 99
[2024-01-07 01:49] VITALS: BP 126/75; PULSE 72; RESP 18; O2SAT 97
== END 2024-01-07 01:58 | disposition home or self-care (01) ==
LOC: MED 21:03
DX: R10.13 Epigastric pain (principal); R51.9 Headache, unspecified; R11.0 Nausea; I10 Essential (primary) hypertension; Z88.2 Allergy status to sulfonamides; Z88.5 Allergy status to narcotic agent; Z79.899 Other long term (current) drug therapy
CPT/HCPCS: 36415; 71045; 80053; 83690; 84484; 85025; 93005; 99285